=== PATIENT | male | born 1965 | race Caucasian/White ===

== ENCOUNTER 2024-04-29 08:42 | Emergency (ER) | payer OTHER ==
[~2024-04-29] VITALS: Ht 190.5 cm; Wt 86.2 kg
[2024-04-29 08:42] VITALS: BP_SYST 133; BP_DIAS 86; BP_DIAS 96; PULSE 96; RESP 18; TEMP 99.5; O2SAT 99
[2024-04-29] MEDS: DUONEB 0.5-3(2.5) MG/3 ML IH STA (09:08)
[2024-04-29] MEDS ORDERED: DUONEB 0.5-3(2.5) MG/3 ML IH ONE (09:17)
[2024-04-29] MEDS ORDERED: ZITHROMAX PO ONE (09:37)
[2024-04-29 09:38] VITALS: PULSE 101; RESP 22; O2SAT 94
[2024-04-29] MEDS ORDERED: ROCEPHIN ONE ×2 (09:38→09:46)
[2024-04-29] MEDS ORDERED: ROBITUSSIN DM ONE (09:38)
[2024-04-29] MEDS ORDERED: LIDOCAINE 1% VIAL ONE (09:38)
[2024-04-29 09:39] VITALS: PULSE 83; RESP 20; O2SAT 97
[2024-04-29] MEDS: ROBITUSSIN DM PO STA (09:46)
[2024-04-29] MEDS: ZITHROMAX PO STA (09:46)
[2024-04-29] MEDS: ROCEPHIN IM STA (09:51)
[2024-04-29 09:57] VITALS: BP 131/95; PULSE 99; RESP 18; TEMP 99.5; O2SAT 99
== END 2024-04-29 09:59 | disposition home or self-care (01) ==
LOC: ER 08:42
DX: J18.9 Pneumonia, unspecified organism (principal); K21.9 Gastro-esophageal reflux disease without esophagitis; F17.210 Nicotine dependence, cigarettes, uncomplicated
CPT/HCPCS: 99283; 71046; 96372; 94640; J2001; J0696 ×2; Q0144